=== PATIENT | female | born 1965 | race African-American/Black ===

== ENCOUNTER 2022-06-16 18:41 | Emergency (ER) | payer OTHER ==
[~2022-06-16] VITALS: Ht 175.3 cm; Wt 74.9 kg
[2022-06-16 18:54] VITALS: BP 117/92
== END 2022-06-17 04:30 | disposition left against medical advice (07) ==
LOC: ER 18:41
DX: R07.81 Pleurodynia (principal); Z53.21 Procedure and treatment not carried out due to patient leaving prior to being seen by health care provider